=== PATIENT | female | born 1975 | race Caucasian/White ===

== ENCOUNTER 2018-02-09 08:40 | Day surgery (SDC) | payer OTHER ==
[~2018-02-09] VITALS: Ht 162.6 cm; Wt 84.4 kg
[~2018-02-09 08:40] MED LIST: CIPROFLOXACIN500 M1; DAILY MULTIPLE1 EACH PO; DITROPAN5 MG; FLEXERIL10 MG PO; PREDNISONE20 MG PO; ROBITUSSIN AC,T10 ML PO; VENTOLIN HFA18 GM IH; VITAMIN B-1250 MC3 PO
[2018-02-09 09:29] VITALS: BP 125/81
[2018-02-09] MEDS ORDERED: MOTRIN800 MG PO (11:22)
[2018-02-09] MEDS ORDERED: NORCO 5/3251 TABLET PO (11:22)
[2018-02-09 12:14] VITALS: BP 142/80
[2018-02-09 12:59] VITALS: BP 114/81
== END 2018-02-09 13:05 | disposition home or self-care (01) ==
LOC: SDC 08:40
DX: N80.0 Endometriosis of uterus (principal); N92.0 Excessive and frequent menstruation with regular cycle; N94.6 Dysmenorrhea, unspecified; Z88.5 Allergy status to narcotic agent; Z88.1 Allergy status to other antibiotic agents
CPT/HCPCS: 88305; J1100; J1885; J2250; J2405; J3010; Q0175